=== PATIENT | female | born 1955 | race Caucasian/White ===

== ENCOUNTER 2016-07-23 19:17 | Emergency (ER) | payer OTHER ==
[~2016-07-23 19:17] MED LIST: CARAFATE1 GM PO; HCTZ25 MG PO; LISINOPRIL20 MG PO; METOPROLOL TART25 MG PO; PANTOPRAZOLE SO40 MG PO; PHENERGAN25 M1 PO
[2016-07-23 19:45] LABS: BASO % 0.5 % (0.1-1.2); EOS # 0.1 10_X3_uL (0.0-0.4); EOS % 1.5 % (0.7-5.8); GRAN # 4.4 10_X3_uL (1.6-6.1); GRAN % 58.5 % (34.0-71.1); HEMATOCRIT 43.4 % (34-45); HEMOGLOBIN 14.2 g/dL (11.2-15.7); LYMPH # 2.3 10_X3_uL (1.2-3.7); LYMPH % 30.6 % (19.3-51.7); MEAN CORPUSCULAR HEMOGLOBIN 29.6 pg (27.0-33.0); MEAN CORPUSCULAR HGB CONC 32.7 g/dL (32.0-36.0); MEAN CORPUSCULAR VOLUME 90.6 fL (79-95); MEAN PLATELET VOLUME 11.9 fl (7.5-11.5); MONO # 0.7 10_X3_uL (0.2-0.9); MONO % 8.9 % (4.7-12.5); PLATELET COUNT 233 x10_3/uL (182-369); RED BLOOD COUNT 4.79 x10_6/uL (3.9-5.2); RED CELL DISTRIBUTION WIDTH 13.1 % (11.7-14.4); WHITE BLOOD COUNT 7.6 x10_3/uL (4.0-10.0)
[2016-07-23 20:02] LABS: BLOOD UREA NITROGEN 9 mg/dL (7-18); CALCIUM 9.5 mg/dL (8.7-10.7); CARBON DIOXIDE 26 mmol/L (21-32); CREATININE 0.8 mg/dL (0.6-1.3); GLUCOSE,RANDOM 113 mg/dL (70-99); POTASSIUM 4.1 mmol/L (3.5-5.1); SODIUM 137 mmol/L (136-145)
== END 2016-07-23 23:35 | disposition short-term general hospital (02) ==
LOC: ER 19:17
PROVIDERS: General Practice
DX: R07.89 Other chest pain (principal); I10 Essential (primary) hypertension; Z88.0 Allergy status to penicillin; Z79.899 Other long term (current) drug therapy
CPT/HCPCS: 36415; 71010; 71260; 80048; 85025; 85379; 93005; 96374; 96375; 99070; 99285-25; J7040; Q9967